=== PATIENT | female | born 1955 | race Caucasian/White ===

== ENCOUNTER → 2016-08-06 | Outpatient (CLI) | payer OTHER | END | disposition home or self-care (01) | LOC: RAD 11:25 | PROVIDERS: ATTEND Neurological Surgery | DX: S22.068A Other fracture of T7-T8 thoracic vertebra, initial encounter for closed fracture (principal) | CPT/HCPCS: 22510 ==

== ENCOUNTER 2016-08-21 07:46 | Day surgery (SDC) | payer OTHER ==
[~2016-08-21] VITALS: Ht 152.4 cm; Wt 60.0 kg
[2016-08-21 08:30] VITALS: BP 158/97
[2016-08-21] MEDS ORDERED: PLEASE ENTER ALLERGIES MC SCH ×2 (08:30)
[2016-08-21] MEDS ORDERED: PLEASE ENTER HEIGHT AND WEIGHT MC SCH (08:30)
[2016-08-21] MEDS ORDERED: SODIUM CHLORIDE 0.9% 1,000 ML IV ONE (09:00)
[2016-08-21] MEDS ORDERED: CEFAZOLIN PMX 1GM/50ML 50 ML IV ONE (09:00)
[2016-08-21] MEDS ORDERED: LIDOCAINE 2%, 20ML ONE (09:00)
[2016-08-21] MEDS ORDERED: FLUMAZENIL 0.1 MG/1 ML, 5ML ONE (10:52)
[2016-08-21] MEDS ORDERED: FENTANYL PF 100 MCG/2ML ONE (10:52)
[2016-08-21] MEDS ORDERED: NALOXONE 1 MG/ML, 2ML ONE (10:52)
[2016-08-21] MEDS ORDERED: MIDAZOLAM 1 MG/ML, 5ML ONE (10:52)
== END 2016-08-21 13:25 | disposition home or self-care (01) ==
LOC: OUT 07:46
PROVIDERS: ATTEND Neurological Surgery
DX: M80.88XA Other osteoporosis with current pathological fracture, vertebra(e), initial encounter for fracture (principal); M54.6 Pain in thoracic spine; I48.91 Unspecified atrial fibrillation; Z87.891 Personal history of nicotine dependence; I10 Essential (primary) hypertension; F10.10 Alcohol abuse, uncomplicated; Z88.8 Allergy status to other drugs, medicaments and biological substances; Z90.722 Acquired absence of ovaries, bilateral; M85.80 Other specified disorders of bone density and structure, unspecified site
CPT/HCPCS: 22510; 99156; 99157; J0690; J2250; J2550; J3010; J3490; J7030; J2310